=== PATIENT | male | born 1935 | race Caucasian/White ===

== ENCOUNTER 2017-09-14 08:51 | Inpatient (IN) | payer MEDICARE, OTHER ==
[~2017-09-14] VITALS: Ht 180.3 cm; Wt 76.7 kg
[2017-09-14] MEDS ORDERED: METO25TA35 PO (09:26)
[2017-09-14] MEDS ORDERED: ASPI-496 PO (09:26)
[2017-09-14] MEDS ORDERED: MECLIZINE CHEWABLE 25 MG TAB ONE (09:29)
[2017-09-14] MEDS ORDERED: MECLIZINE CHEWABLE 25 MG TAB PO ONE (09:30)
[2017-09-14 09:42] LABS: HEMATOCRIT 43.1 % (39.2-51.8); HEMOGLOBIN 15.1 g/dL (13.7-18.0); WHITE BLOOD COUNT 5.5 x10^3/uL (3.4-10)
[2017-09-14 09:55] LABS: BLOOD UREA NITROGEN 23 mg/dL (7-18)
[2017-09-14 10:01] LABS: IS PT STATUS REG ER OR PRE ER? YES
[2017-09-14 13:34] VITALS: BP 147/62
[2017-09-14] MEDS ORDERED: POLYETHYLENE GLYCOL 17 GM PACKET PO PRN (14:00)
[2017-09-14] MEDS ORDERED: BISACODYL 10 MG SUPP PR PRN (14:00)
[2017-09-14] MEDS ORDERED: ACETAMINOPHEN 325 MG TABLET PO PRN (14:00)
[2017-09-14] MEDS ORDERED: DOCUSATE 100 MG CAPSULE PO PRN (14:00)
[2017-09-14 14:38] LABS: IS PT STATUS REG ER OR PRE ER? NO
[2017-09-14 15:32] VITALS: BP 143/69
[2017-09-14] MEDS: SODIUM CHLORIDE 0.9% 1,000 ML IV SCH (18:00)
[2017-09-14] MEDS: ENOXAPARIN 40 MG/0.4 ML SQ SCH (18:19)
[2017-09-14 19:50] VITALS: BP 137/68
[2017-09-14 19:59] LABS: IS PT STATUS REG ER OR PRE ER? NO
[2017-09-15 00:29] LABS: PATH.CAST-FLAG NOT PRESENT; SPERM-FLAG NOT PRESENT; SRC-FLAG NOT PRESENT; XTAL-FLAG NOT PRESENT; YLC-FLAG NOT PRESENT
[2017-09-15 01:35] VITALS: BP 123/72
[2017-09-15] MEDS: SODIUM CHLORIDE 0.9% 1,000 ML IV SCH (04:08)
[2017-09-15 05:29] LABS: HEMATOCRIT 41.8 % (39.2-51.8); HEMOGLOBIN 14.1 g/dL (13.7-18.0); WHITE BLOOD COUNT 6.5 x10^3/uL (3.4-10)
[2017-09-15 06:02] LABS: ASPARTATE AMINO TRANSFERASE 19 U/L (15-37); BLOOD UREA NITROGEN 22 mg/dL (7-18)
[2017-09-15 06:40] VITALS: BP 143/74
[2017-09-15] MEDS: ASPIRIN 81 MG TABLET EC PO SCH (09:10)
[2017-09-15] MEDS: CEFTRIAXONE PMX 1GM/50ML 50 ML IV SCH (10:36)
[2017-09-15 13:12] VITALS: BP 145/68
[2017-09-15] MEDS: ENOXAPARIN 40 MG/0.4 ML SQ SCH (18:14)
[2017-09-15 19:00] VITALS: BP 132/70
[2017-09-16 03:10] VITALS: BP 115/71
[2017-09-16 06:45] VITALS: BP 145/74
[2017-09-16] MEDS: ASPIRIN 81 MG TABLET EC PO SCH (08:40)
[2017-09-16] MEDS: CEFTRIAXONE PMX 1GM/50ML 50 ML IV SCH (08:40)
[2017-09-16] MEDS ORDERED: CEFD300C37 PO (10:24)
[2017-09-16] MEDS ORDERED: CYANOCOBALAMIN 1,000 MCG/ML, 1ML IM ONE (12:00)
== END 2017-09-16 12:14 | disposition home or self-care (01) | DRG 312 ==
LOC: ED 09:47 → EDIP 10:51 → 4WST 11:47
PROVIDERS: ADMIT Internal Medicine; ATTEND Internal Medicine
DX: R55 Syncope and collapse (principal); N39.0 Urinary tract infection, site not specified; I34.0 Nonrheumatic mitral (valve) insufficiency; I10 Essential (primary) hypertension; R00.1 Bradycardia, unspecified; B96.20 Unspecified Escherichia coli [E. coli] as the cause of diseases classified elsewhere; I25.10 Atherosclerotic heart disease of native coronary artery without angina pectoris; N40.0 Benign prostatic hyperplasia without lower urinary tract symptoms; Z95.5 Presence of coronary angioplasty implant and graft; I25.2 Old myocardial infarction; Z80.1 Family history of malignant neoplasm of trachea, bronchus and lung; Z87.891 Personal history of nicotine dependence; Z88.8 Allergy status to other drugs, medicaments and biological substances
CPT/HCPCS: 36415; 71010; 80048; 80053; 81001; 82040; 82607; 83735; 83880; 84100; 84443; 84484; 85025; 85379; 87077; 87086; 87186; 93005; 93306; 99285; J0696; J1650; J3420; J7030

== ENCOUNTER 2017-12-29 06:27 | Emergency (ER) | payer OTHER ==
[~2017-12-29 06:27] MED LIST: ASPI-496 PO; CEFD300C37 PO; METO25TA35 PO
[2017-12-29] MEDS ORDERED: STATIN PO (06:53)
[2017-12-29] MEDS ORDERED: ASCO500C2 PO (06:53)
[2017-12-29 07:02] LABS: BASOPHILS # (AUTO) 0.04 x10^3/uL (0-0.1); BASOPHILS % (AUTO) 1 % (0-1); EOSINOPHILS # (AUTO) 0.49 x10^3/uL (0-0.4); EOSINOPHILS % (AUTO) 8 % (1-7); LYMPHOCYTES # (AUTO) 1.48 x10^3/uL (1-3.4); LYMPHOCYTES % (AUTO) 23 % (22-44); MD NO; MEAN CORPUSCULAR HEMOGLOBIN 30.7 pg (27.5-34.5); MEAN CORPUSCULAR HGB CONC 33.5 g/dL (33.2-36.2); MEAN CORPUSCULAR VOLUME 91.6 fL (81-97); MEAN PLATELET VOLUME 8.4 fL (7.4-10.4); MONOCYTES # (AUTO) 0.82 x10^3/uL (0.2-0.8); MONOCYTES % (AUTO) 13 % (2-9); NEUTROPHILS # (AUTO) 3.63 x10^3/uL (1.8-6.8); NEUTROPHILS % (AUTO) 56 % (42-75); PLATELET COUNT 211 x10^3/uL (130-400); RED BLOOD COUNT 4.86 x10^6/uL (4.38-5.82); RED CELL DISTRIBUTION WIDTH 13.9 % (9.4-14.8)
[2017-12-29 07:15] LABS: ALBUMIN 3.5 g/dL (3.4-5.0); ANION GAP 7 mmol/L (5-15); CALCIUM 8.8 mg/dL (8.5-10.1); CHLORIDE 105 mmol/L (98-107); CREATININE 1.21 mg/dL (0.7-1.3)
[2017-12-29 07:18] LABS: TROPONIN I < 0.015 ng/mL (0.000-0.045)
[2017-12-29 08:54] VITALS: BP 132/46
== END 2017-12-29 08:56 | disposition home or self-care (01) ==
LOC: ED 07:26
DX: R07.89 Other chest pain (principal); I10 Essential (primary) hypertension; I25.2 Old myocardial infarction
CPT/HCPCS: 36415; 71046; 80048; 82040; 84484; 85025; 93005; 99285

== ENCOUNTER → 2018-02-20 | Outpatient (CLI) | payer OTHER ==
[~2018-02-20] MED LIST changes: +ASCO500C2 PO; +REGADENOSON 0.4 MG/5 ML SYRINGE ONE; +STATIN PO
== END | disposition home or self-care (01) ==
LOC: CFH 11:57
PROVIDERS: ATTEND Internal Medicine Cardiovascular Disease
DX: I25.10 Atherosclerotic heart disease of native coronary artery without angina pectoris (principal); R07.89 Other chest pain; R06.00 Dyspnea, unspecified; R00.1 Bradycardia, unspecified
CPT/HCPCS: 78452; 93017; A9502; J2785

== ENCOUNTER 2019-04-07 09:41 | Outpatient (CLI) | payer MEDICARE ==
[~2019-04-07 09:41] MED LIST changes: -REGADENOSON 0.4 MG/5 ML SYRINGE ONE
== END 2019-04-07 23:59 | disposition home or self-care (01) ==
LOC: CFH 09:41
PROVIDERS: ATTEND Internal Medicine Cardiovascular Disease
DX: I08.3 Combined rheumatic disorders of mitral, aortic and tricuspid valves (principal); I10 Essential (primary) hypertension
CPT/HCPCS: 93306

== ENCOUNTER 2020-01-22 13:50 | Emergency (ER) | payer MEDICARE ==
[~2020-01-22] VITALS: Ht 175.3 cm; Wt 79.2 kg
[2020-01-22] MEDS ORDERED: PRAV20TA2 PO (14:07)
[2020-01-22] MEDS ORDERED: NEOSPORIN OINT. PKT 1 PACKET ONE (14:22)
--- NOTE | 2020-01-22 14:40 | NUR ---
PT'S SPOUSE CALLED FOR PT STATUS. ID CONFIRMED. MRS FLORES NOTIFIED PT CURRENTLY IN RADIOLOGY, ADDITIONAL TX UNKNOWN AT THIS POINT IN TIME. SPOUSE STATES "I'M TIRED OF WAITING OUT HERE IN THE COLD AND I'M NOT GOING TO COME IN AND GET EXPOSED. I'M GOING HOME. YOU'LL HAVE TO CALL ME WHEN HE'S DONE". INFORMED SPOUSE DC TIME IS CURRENTLY UNKNOWN BUT WE WILL CALL HER. [place]: [phone], CELL [phone].
[2020-01-22 15:49] VITALS: BP 127/60
--- NOTE | 2020-01-22 15:51 | NUR ---
CALLED MRS FLORES, INFORMED HER PT IS READY TO BE PICKED UP; UNDERSTANDING VERBALIZED; STATES SHE WILL ARRIVE SOON.
== END 2020-01-22 15:54 | disposition home or self-care (01) ==
LOC: ED 14:12
DX: S02.2XXA Fracture of nasal bones, initial encounter for closed fracture (principal); S01.112A Laceration without foreign body of left eyelid and periocular area, initial encounter; S09.90XA Unspecified injury of head, initial encounter; I10 Essential (primary) hypertension; W01.0XXA Fall on same level from slipping, tripping and stumbling without subsequent striking against object, initial encounter; Y93.89 Activity, other specified; Y92.098 Other place in other non-institutional residence as the place of occurrence of the external cause; Y99.8 Other external cause status
CPT/HCPCS: 12011; 70450; 70486; 72125; 99285